=== PATIENT | male | born 1965 | race Caucasian/White ===

== ENCOUNTER 2023-02-28 10:58 | Day surgery (SDC) | payer OTHER ==
[2023-02-24 17:14] VITALS: BMI 24.1
[2023-02-28 11:32] VITALS: BP 123/87; PULSE 83; RESP 20; TEMP 97.4
[2023-02-28] MEDS ORDERED: PROPOFOL 20 ML ONE (11:38)
== END 2023-02-28 11:59 | disposition home or self-care (01) ==
LOC: FASU-ENDO 10:58
PROVIDERS: ATTEND Internal Medicine Gastroenterology
PROC: 0DJD8ZZ Inspection of Lower Intestinal Tract, Via Natural or Artificial Opening Endoscopic (ICD-10-PCS; principal; 2023-02-28)
DX: Z53.8 Procedure and treatment not carried out for other reasons (principal); Z12.11 Encounter for screening for malignant neoplasm of colon

== ENCOUNTER 2023-07-11 09:53 | Day surgery (SDC) | payer OTHER ==
[2023-06-27 16:34] VITALS: BMI 24.1
[2023-07-11 12:48] VITALS: TEMP 97.7
[2023-07-11 13:01] VITALS: BP 102/60; PULSE 80; RESP 19
== END 2023-07-11 13:24 | disposition home or self-care (01) ==
LOC: FASU-ENDO 09:53
PROVIDERS: ATTEND Internal Medicine Gastroenterology
PROC: 0DJD8ZZ Inspection of Lower Intestinal Tract, Via Natural or Artificial Opening Endoscopic (ICD-10-PCS; principal; 2023-07-11 12:06)
DX: Z12.11 Encounter for screening for malignant neoplasm of colon (principal)